=== PATIENT | female | born 1995 | race Caucasian/White ===

== ENCOUNTER 2016-10-09 01:43 | Emergency (ER) | payer BC ==
[~2016-10-09] VITALS: Ht 160 cm; Wt 65.5 kg
[2016-10-09 01:51] VITALS: TEMP 37.2; Ht 160 cm; Wt 65.5 kg
[2016-10-09] MEDS ORDERED: SODIUM CHLORIDE 0.9% 1000ML 1,000 ML IV STA (01:59)
[2016-10-09] MEDS ORDERED: GI COCKTAIL PO STA ×2 (01:59→04:22)
--- NOTE | 2016-10-09 02:10 | EMERGENCY ROOM VISIT NOTE ---
History Report prepared by Carmelita: Sveta Correa Under the Supervision of: Dr. John Raya M.D. First contact with patient: 01:55 Chief Complaint: ABDOMINAL PAIN Stated Complaint: UPR ABDOMEN PAIN - REACTION FROM MEDICATION? History of Present Illness The patient is a 21 year old female who presents to the Emergency Room with complaints of worsening upper right abdominal pain starting 2 days [employer]. The patient states that she is suffering from a sinus infection and was taking DayQuil and after one day was experiencing abdominal pain that seemed to worsen and she experienced nausea and dizziness. She states that the label on the medication said to be seen if there was abdominal pain. The patient states that the pain is worsened after eating food but she denies any back pain or recent fall or trauma. She denies any abdominal surgeries or family history of gallbladder issues. The patient states that she is still having congestion and sinus pressure pain from her sinus infection which is causing her to get less sleep than usual. The patient denies having any problem having bowel movements recently. Source of History: patient Onset: 2 days [employer] Position: abdomen (RUQ) Symptom Intensity: Timing: worsening Modifying Factors (Worsening): eating Associated Symptoms: + nausea Note: Associated symptoms: dizziness. congestion, sinus pressure pain Patient denies recent falls or trauma. Review of Systems See HPI for pertinent positives & negatives. A total of 10 systems reviewed and were otherwise negative. Past Medical & Surgical Surgical Problems: (1) Hx of appendectomy (2) [place] teeth extracted Family History Diabetes mellitus FH: lung disease FHx: cancer Hypertension Social History Smoking Status: Never Smoker Marital Status: single Housing Status: lives with roommate Occupation Status: student Current/Historical Medications Scheduled Famotidine (Pepcid), 20 MG PO BID Allergies Coded Allergies: Gluten (Verified Allergy, Intermediate, ciliac, 10/09/16) Penicillins (Verified Allergy, Intermediate, hives, 10/09/16) Physical Exam Vital Signs Date Time Temp Pulse Resp B/P Pulse Ox O2 Delivery O2 Flow Rate FiO2 10/09/16 05:10 82 18 110/69 100 Room Air 10/09/16 03:49 70 18 107/78 98 Room Air 10/09/16 01:51 37.2 71 20 130/90 96 Room Air Physical Exam GENERAL: Patient is uncomfortable and in mild distress. HEENT: No acute trauma, normocephalic atraumatic, mucous membranes moist, no nasal congestion, no scleral icterus. NECK: No stridor, no adenopathy, no meningismus, trachea is midline. LUNGS: No dyspnea. Clear to auscultation and equal bilaterally. No wheeze, no rhonchi. HEART: Regular rate and rhythm. No murmurs, rubs, gallops appreciated. ABDOMEN: Soft, moderate epigastric and right upper quadrant pain with palpation , bowel sounds positive, no masses appreciated, no peritonitis. BACK: No midline tenderness, no CVA tenderness EXTREMITIES: Normal motion all extremities, no cyanosis, no edema. NEUROLOGIC: Alert and oriented, no acute motor or sensory deficits, no focal weakness, cranial nerves grossly intact. SKIN: No rash, no jaundice, no diaphoresis. Medical Decision & Procedures ER Provider Diagnostic Interpretation: US results as stated below per interpretation by me and the radiologist: Preliminary Results Only--- See Final Report for Complete Findings: Gallbladder Ultrasound: No definite gallstones in contracted gallbladder. Borderline wall thickness. Normal caliber common duct. Remainder unremarkable. Radiologist: Ivan Giron M.D. Study ready at 0342 and initial results transmitted at 0415 Laboratory Results 10/09/16 02:39 Red Blood Count 4.65, Mean Corpuscular Volume 91.6, Mean Corpuscular Hemoglobin 31.6, Mean Corpuscular Hemoglobin Concent 34.5, Mean Platelet Volume 10.4, Neutrophils (%) (Auto) 39.1, Lymphocytes (%) (Auto) 45.5, Monocytes (%) (Auto) 13.3, Eosinophils (%) (Auto) 1.3, Basophils (%) (Auto) 0.6, Neutrophils # (Auto ) 2.49, Lymphocytes # (Auto) 2.90, Monocytes # (Auto) 0.85, Eosinophils # (Auto ) 0.08, Basophils # (Auto) 0.04 10/09/16 02:39 Test 10/09/16 01:59 10/09/16 02:39 10/09/16 03:42 Urine Test NEG (NEG) White Blood Count 6.37 K/uL (4.8-10.8) Red Blood Count 4.65 M/uL (4.2-5.4) Hemoglobin 14.7 g/dL (12.0-16.0) Hematocrit 42.6 % (37-47) Mean Corpuscular Volume 91.6 fL (80-100) Mean Corpuscular Hemoglobin 31.6 pg (25-34) Mean Corpuscular Hemoglobin Concent 34.5 g/dl (32-36) Platelet Count 290 K/uL (130-400) Mean Platelet Volume 10.4 fL (7.4-10.4) Neutrophils (%) (Auto) 39.1 % Lymphocytes (%) (Auto) 45.5 % Monocytes (%) (Auto) 13.3 % Eosinophils (%) (Auto) 1.3 % Basophils (%) (Auto) 0.6 % Neutrophils # (Auto) 2.49 K/uL (1.4-6.5) Lymphocytes # (Auto) 2.90 K/uL (1.2-3.4) Monocytes # (Auto) 0.85 K/uL (0.11-0.59) Eosinophils # (Auto) 0.08 K/uL (0-0.5) Basophils # (Auto) 0.04 K/uL (0-0.2) RDW Standard Deviation 44.8 fL (36.4-46.3) RDW Coefficient of Variation 13.4 % (11.5-14.5) Immature Granulocyte % (Auto) 0.2 % Immature Granulocyte # (Auto) 0.01 K/uL (0.00-0.02) Anion Gap 10.0 mmol/L (3-11) Est Creatinine Clear Calc Drug Dose 82.9 ml/min Estimated GFR () 96.6 Estimated GFR (Non- 83.4 BUN/Creatinine Ratio 16.8 (10-20) Calcium Level 9.4 mg/dl (8.5-10.1) Total Bilirubin 0.5 mg/dl (0.2-1) Direct Bilirubin 0.1 mg/dl (0-0.2) Aspartate Amino Transf (AST/SGOT) 10 U/L (15-37) Alanine Aminotransferase (ALT/SGPT) 19 U/L (12-78) Alkaline Phosphatase 52 U/L (45-117) Total Protein 8.5 gm/dl (6.4-8.2) Albumin 4.5 gm/dl (3.4-5.0) Lipase 176 U/L (73-393) Urine Color YELLOW Urine Appearance CLEAR (CLEAR) Urine pH 6.0 (4.5-7.5) Urine Specific [place] 1.010 (1.000-1.030) Urine Protein NEG (NEG) Urine Glucose (UA) NEG (NEG) Urine Ketones NEG (NEG) Urine Occult Blood NEG (NEG) Urine Nitrite NEG (NEG) Urine Bilirubin NEG (NEG) Urine Urobilinogen NEG (NEG) Urine Leukocyte Esterase NEG (NEG) Urine WBC (Auto) 1-5 /hpf (0-5) Urine RBC (Auto) 0-4 /hpf (0-4) Urine Hyaline Casts (Auto) 0 /lpf (0-5) Urine Epithelial Cells (Auto) 10-20 /lpf (0-5) Urine Bacteria (Auto) NEG (NEG) Laboratory results as reviewed by me. Medications Administered Medications (Trade) Dose Ordered Sig/[place] Route Start Time Stop Time Status Last Admin Dose Admin Sodium Chloride (Nss 1000ml) 1,000 ml @ 999 mls/hr Q1H1M STAT IV 10/09/16 01:59 10/09/16 02:59 DC 10/09/16 02:44 999 MLS/HR Al Hydroxide/Mg Hydroxide (Maalox Susp) 30 ml STK-MED ONCE .ROUTE 10/09/16 02:17 10/09/16 02:19 DC 10/09/16 02:44 30 ML Lidocaine HCl (Viscous Lidocaine 2% Soln) 20 ml STK-MED ONCE .ROUTE 10/09/16 02:18 10/09/16 02:19 DC 10/09/16 02:45 20 ML Famotidine (Pepcid Tab) 20 mg NOW ONCE PO 10/09/16 04:30 10/09/16 04:31 DC 10/09/16 05:05 20 MG Al Hydroxide/Mg Hydroxide (Maalox Susp) 30 ml STK-MED ONCE .ROUTE 10/09/16 05:00 10/09/16 05:03 DC 10/09/16 05:05 30 ML Lidocaine HCl (Viscous Lidocaine 2% Soln) 20 ml STK-MED ONCE .ROUTE 10/09/16 05:00 10/09/16 05:03 DC 10/09/16 05:05 20 ML ED Course 0155: The patient was evaluated in room B12A. A complete history and physical exam was performed. 0159: Ordered GI Cocktail 24 ml PO, Sodium Chloride 1,000 ml @ 999 mls/hr. 0305: I reevaluated the patient and she states that the GI cocktail decreased her pain and has only mild pain now. 0422: Ordered GI Cocktail 24 ml PO 0430: Ordered Pepcid Tab 20 mg PO. 0509: Reevaluated the patient. Discussed results and discharge instructions: She verbalized understanding and agreement. The patient is ready for discharge. Medical Decision Differential: Cholecystitis, Gallbladder disfunction, Hepatic Disfunction, Gastritis/PUD, Pancreatitis, amongst other pathologies entertained. 21 yr old female arrives with complaint of epigastric discomfort after taking sinus congestion medications. Does have some TTP over epigastrium/RUQ which resolved with GI cocktail. There is some mild wall thickening of GB though with pain improving, no lab abnormalities this is likely due to being contracted. As feeling better after GI cocktail seems reasonable to treat as gastritis possibly irritated with URI meds. No indication for abx at this time and would avoid steroids given gastritis issues. She is stable, no distress and feeling better. Aware RTED if worsening or other concerns. Impression Primary Impression: Epigastric abdominal pain Scribe Attestation The scribe's documentation has been prepared under my direction and personally reviewed by me in its entirety. I confirm that the note above accurately reflects all work, treatment, procedures, and medical decision making performed by me. Departure Information Dispostion Home / Self-Care Prescriptions Famotidine (Pepcid) 20 Mg Tab 20 MG PO BID for 10 Days, #20 TAB Prov: John Raya M.D. 10/09/16 Referrals No Doctor, Assigned (PCP) Forms HOME CARE DOCUMENTATION FORM, IMPORTANT VISIT INFORMATION Patient Instructions ED Epigastric Pain [facility]
[2016-10-09] MEDS ORDERED: ALUMINUM/MAGNESIUM SUSP 30 ML UDC ONE ×2 (02:17→05:00)
[2016-10-09] MEDS ORDERED: LIDOCAINE HCL 2% VISC SOLN 20 ML UDC ONE ×2 (02:18→05:00)
[2016-10-09 02:56] LABS: BASO % 0.6 %; BASO ABS # 0.04 K/uL (0-0.2); COMPLETE YES; EOS % 1.3 %; HEMATOCRIT 42.6 % (37-47); IG% 0.2 %; LYMPH % 45.5 %; MEAN CELL VOLUME 91.6 fL (80-100); MEAN CORPUSCULAR HEMOGLOBIN 31.6 pg (25-34); MEAN CORPUSCULAR HGB CONC 34.5 g/dl (32-36); MEAN PLATELET VOLUME 10.4 fL (7.4-10.4); MONO % 13.3 %; NEUT % 39.1 %; PLATELET COUNT 290 K/uL (130-400); RED BLOOD COUNT 4.65 M/uL (4.2-5.4); WHITE BLOOD COUNT 6.37 K/uL (4.8-10.8)
[2016-10-09 03:17] LABS: BUN/CREATININE RATIO 16.8 (10-20); CALCIUM 9.4 mg/dl (8.5-10.1); CREATININE 0.96 mg/dl (0.60-1.20); POTASSIUM 3.7 mmol/L (3.5-5.1)
[2016-10-09 04:19] LABS: URINE APPEARANCE CLEAR (CLEAR); URINE BILIRUBIN NEG (NEG); URINE COLOR YELLOW; URINE NITRITE NEG (NEG); UROBILINOGEN NEG (NEG); ZZUR CULT IF INDIC CLEAN CATCH NO
[2016-10-09] MEDS ORDERED: FAMO20TA11 PO (04:23)
[2016-10-09 04:24] LABS: MANUAL MICROSCOPIC REQUIRED? NO; REVIEW REQ? NO
[2016-10-09] MEDS ORDERED: FAMOTIDINE 20 MG TAB PO ONE (04:30)
[2016-10-09 05:10] VITALS: BP 110/69; PULSE 82; O2SAT 100
--- NOTE | 2016-10-09 06:49 | DIAGNOSTIC IMAGING REPORT ---
Right upper quadrant ultrasound GALLBLADDER-ABD LIMITED CLINICAL HISTORY: RUQ pain pain. Nausea. TECHNIQUE: Ultrasound COMPARISON STUDY: None FINDINGS: Normal study. No evidence for gallstones. Common bile duct 5 mm. Liver pancreas and right kidney are unremarkable. IMPRESSION: Negative study Electronically signed by: Jarret Klein M.D. 10/09/2016 6:48 AM Dictated Date/Time: 10/09/2016 6:47 AM
== END 2016-10-09 05:14 | disposition home or self-care (01) ==
LOC: C.EDB 01:44
DX: R10.13 Epigastric pain (principal); Z79.899 Other long term (current) drug therapy; Z88.0 Allergy status to penicillin; Z91.018 Allergy to other foods; Z83.3 Family history of diabetes mellitus; Z80.9 Family history of malignant neoplasm, unspecified; Z82.49 Family history of ischemic heart disease and other diseases of the circulatory system

== ENCOUNTER → 2016-10-18 | Outpatient (CLI) | payer BC ==
[~2016-10-18] MED LIST: FAMO20TA11 PO
[2016-10-23 00:15] LABS: CHLAMYDIA TRACH RNA*** NOT DETECTED (NOT DETECTED); GC (NEIS GONORRHOEAE)RNA** NOT DETECTED (NOT DETECTED)
== END | disposition home or self-care (01) ==
LOC: C.LABSPEC 16:59
PROVIDERS: ATTEND Obstetrics & Gynecology
DX: R10.2 Pelvic and perineal pain (principal); Z11.3 Encounter for screening for infections with a predominantly sexual mode of transmission